=== PATIENT | male | born 1935 | race Caucasian/White ===

== ENCOUNTER → 2021-11-28 | Outpatient (CLI) | payer MEDICARE ==
--- NOTE | 2021-11-28 16:14 | Diagnostic Imaging Report ---
Indication: Loss of appetite, weight loss, cardiac pacemaker. Comparison: None Findings: Acute abdominal series demonstrates nonspecific nodule in the right upper lobe. CT is recommended. There is hyperinflation of both lungs suspicious for COPD. No infiltrate is identified. The heart and cardiac pacemaker unremarkable. There is no bowel obstruction, free air or constipation. Osseous structures are normal. Impression: Nonspecific nodule right upper lobe. CT chest recommended. Dictated by: Dictated on workstation # [id number]
== END ==
LOC: RAD FS 14:43
PROVIDERS: ATTEND Family Medicine
DX: R63.0 Anorexia (principal); R63.4 Abnormal weight loss; Z95.0 Presence of cardiac pacemaker
CPT/HCPCS: 74022

== ENCOUNTER → 2021-11-29 | Outpatient (CLI) | payer MEDICARE ==
[~2021-11-29] MED LIST: CATHETER FLUSH 10 ML SYR IV PRN; HOLD METFORMIN - RECEIVED CONTRAST 20 ML VIAL IV SCH; IOHEXOL 350 MG/ML 100 ML (OMNIPAQUE 350) VIAL IV ONE; NS 100 ML (IVPB) BAG IV ONE
--- NOTE | 2021-11-29 15:20 | Diagnostic Imaging Report ---
PROCEDURE: CT chest with contrast only. TECHNIQUE: Multiple contiguous axial images were obtained through the chest after administration of intravenous contrast. Auto Exposure Controls were utilized during the CT exam to meet ALARA standards for radiation dose reduction. DATE: November 29, 2021. COMPARISON: Acute abdominal radiographic series of November 28, 2021. INDICATION: 86-year-old male, right upper lobe pulmonary nodule. FINDINGS: There is a benign calcified right upper lobe granuloma measuring 5 mm in size on axial image 52. There is minimal pleural parenchymal scarring in the lung apices. There are upper lobe predominant findings of centrilobular emphysema. There is some respiratory motion artifact. There is no identified noncalcified pulmonary nodule or lung mass. There is no otherwise noted focal airspace consolidation. There is no pneumothorax. There is no pleural effusion. The central airways are patent. The heart is not enlarged. There is no pericardial effusion. There is no identified abnormally enlarged mediastinal, hilar, or axillary lymph node meeting CT size criteria for adenopathy. There is an exophytic low-attenuation right renal lesion on axial image 182 measuring up to 6.3 cm in size. Internal attenuation is most compatible with a benign cyst. There is also an additional low-attenuation smaller right renal lesion on axial image 202 consistent with a benign cyst. There are degenerative changes of the spine. There are multilevel flowing syndesmophytes without pronounced disc height loss which may reflect diffuse hepatic skeletal hyperostosis. There is no identified acute bony abnormality. There are degenerative changes of the cervical spine. IMPRESSION: CT CHEST. 1. Benign calcified 5 mm right upper lobe granuloma. No noncalcified pulmonary nodule or lung mass 2. Findings of emphysema. 3. No acute cardiopulmonary abnormality. Dictated by: Dictated on workstation # [id number]
== END ==
LOC: RAD FS 13:35
PROVIDERS: ATTEND Family Medicine
DX: J84.10 Pulmonary fibrosis, unspecified (principal); J43.9 Emphysema, unspecified; R91.1 Solitary pulmonary nodule
CPT/HCPCS: 71260

== ENCOUNTER 2022-01-06 20:28 | Inpatient (IN) | payer MEDICARE ==
[~2022-01-06] VITALS: Ht 182.9 cm; Wt 83.1 kg
--- NOTE | 2022-01-06 20:40 | ED GI ---
General Chief Complaint: Abdominal/GI Problems Stated Complaint: N/V Source of Information: Patient, EMS Exam Limitations: No Limitations History of Present Illness Date Seen by Provider: Jan 06, 2022 Time Seen by Provider: 20:37 Initial Comments To ER by EMS from [facility] with reports of nausea vomiting and intermittent abdominal pain. Was worried he is going to get dehydrated. Denies any diarrhea. EMS gave 4 mg of Zofran and 1 L of IV fluids in route to the hospital which resolved his symptoms upon arrival here. Timing/Duration: 1-2 Days Severity/Quality: Moderate Location: Generalized Abdomen Radiation: No Radiation Activities at Onset: None Associated Symptoms: Nausea/Vomiting Allergies and Home Medications Allergies Coded Allergies: No Known Drug Allergies (Unverified , 01/06/22) Patient Home Medication List Home Medication List Reviewed: Yes Review of Systems Review of Systems Constitutional: see HPI EENTM: No Symptoms Reported Respiratory: No Symptoms Reported Cardiovascular: No Symptoms Reported Gastrointestinal: See HPI, Abdominal Pain; Denies Diarrhea; Nausea, Vomiting Genitourinary: No Symptoms Reported Musculoskeletal: no symptoms reported Skin: no symptoms reported Psychiatric/Neurological: No Symptoms Reported Endocrine: No Symptoms Reported Hematologic/Lymphatic: No Symptoms Reported Physical Exam Vital Signs Vital Signs - First Documented 01/06/22 20:29 Temp 37.1 Pulse 96 Resp 18 B/P (MAP) 109/94 (99) Pulse Ox 97 O2 Delivery Room Air Capillary Refill : Height/Weight/BMI Height: '" Weight: lbs. oz. kg; BMI Method: General Appearance: WD/WN, no apparent distress, other (No distress at this time, hemodynamically stable abdomen is flat soft and nontender. Bowel sounds are present.) HEENT: PERRL/EOMI, normal ENT inspection Neck: non-tender, full range of motion Respiratory: no respiratory distress, no accessory muscle use Cardiovascular: regular rate, rhythm, no murmur Gastrointestinal: normal bowel sounds, non tender, soft Extremities: normal range of motion, non-tender Neurologic/Psychiatric: alert, normal mood/affect, oriented x 3 Skin: normal color, warm/dry Progress/Results/Core Measures Results/Orders Lab Results Laboratory Tests Test 01/06/22 20:40 01/06/22 21:36 Range/Units White Blood Count 17.8 H 4.3-11.0 10^3/uL Red Blood Count 5.24 4.30-5.52 10^6/uL Hemoglobin 16.7 13.3-17.7 g/dL Hematocrit 50 40-54 % Mean Corpuscular Volume 96 80-99 fL Mean Corpuscular Hemoglobin 32 25-34 pg Mean Corpuscular Hemoglobin Concent 33 32-36 g/dL Red Cell Distribution Width 13.8 10.0-14.5 % Platelet Count 231 130-400 10^3/uL Mean Platelet Volume 11.3 9.0-12.2 fL Immature Granulocyte % (Auto) 0 % Neutrophils (%) (Auto) 91 H 42-75 % Lymphocytes (%) (Auto) 3 L 12-44 % Monocytes (%) (Auto) 6 0-12 % Eosinophils (%) (Auto) 0 0-10 % Basophils (%) (Auto) 0 0-10 % Neutrophils # (Auto) 16.3 H 1.8-7.8 10^3/uL Lymphocytes # (Auto) 0.5 L 1.0-4.0 10^3/uL Monocytes # (Auto) 1.0 0.0-1.0 10^3/uL Eosinophils # (Auto) 0.0 0.0-0.3 10^3/uL Basophils # (Auto) 0.0 0.0-0.1 10^3/uL Immature Granulocyte # (Auto) 0.1 0.0-0.1 10^3/uL Neutrophils % (Manual) 91 % Lymphocytes % (Manual) 0 % Monocytes % (Manual) 1 % Eosinophils % (Manual) 0 % Basophils % (Manual) 0 % Band Neutrophils 7 % Reactive Lymphocytes 1 % Blood Morphology Comment NORMAL Sodium Level 141 135-145 MMOL/L Potassium Level 4.1 3.6-5.0 MMOL/L Chloride Level 102 98-107 MMOL/L Carbon Dioxide Level 22 21-32 MMOL/L Anion Gap 17 H 5-14 MMOL/L Blood Urea Nitrogen 41 H 7-18 MG/DL Creatinine 1.16 0.60-1.30 MG/DL Estimat Glomerular Filtration Rate 62 BUN/Creatinine Ratio 35 Glucose Level 170 H 70-105 MG/DL Calcium Level 10.3 H 8.5-10.1 MG/DL Corrected Calcium 9.9 8.5-10.1 MG/DL Total Bilirubin 1.9 H 0.1-1.0 MG/DL Aspartate Amino Transf (AST/SGOT) 22 5-34 U/L Alanine Aminotransferase (ALT/SGPT) 28 0-55 U/L Alkaline Phosphatase 80 40-136 U/L Total Protein 8.4 H 6.4-8.2 GM/DL Albumin 4.5 3.2-4.5 GM/DL Lipase 10 8-78 U/L Urine Color YELLOW Urine Clarity CLEAR Urine pH 5.5 5-9 Urine Specific [place] >=1.030 1.016-1.022 Urine Protein TRACE H NEGATIVE Urine Glucose (UA) NEGATIVE NEGATIVE Urine Ketones TRACE H NEGATIVE Urine Nitrite NEGATIVE NEGATIVE Urine Bilirubin NEGATIVE NEGATIVE Urine Urobilinogen 0.2 < = 1.0 MG/DL Urine Leukocyte Esterase NEGATIVE NEGATIVE Urine RBC (Auto) NEGATIVE NEGATIVE Urine RBC NONE /HPF Urine WBC RARE /HPF Urine Squamous Epithelial Cells NONE /HPF Urine Crystals NONE /LPF Urine Bacteria TRACE /HPF Urine Casts PRESENT /LPF Urine Hyaline Casts 5-10 H /LPF Urine Mucus SMALL H /LPF Urine Culture Indicated NO My Orders Orders - NELSON LAFLEUR APRN Cbc With Automated Diff (01/06/22 20:35) Lipase (01/06/22 20:35) Ua Culture If Indicated (01/06/22 20:35) Comprehensive Metabolic Panel (01/06/22 20:35) Ct Abdomen/Pelvis Wo (01/06/22 20:35) Manual Differential (01/06/22 20:40) Benzocaine Extension Tube (Hurricaine Ex (01/06/22 21:30) Chest 1 View, Ap/Pa Only (01/06/22 21:17) Benzocaine Extension Tube (Hurricaine Ex (01/06/22 21:18) Promethazine Injection (Phenergan Injec (01/06/22 21:45) Fentanyl Inj (Sublimaze Injection) (01/06/22 21:45) Ng Tube Insert & Assessment (01/06/22 21:50) Chest 1 View, Ap/Pa Only (01/06/22 21:50) Piperacillin Sodium/Tazobactam (Zosyn Vi (01/06/22 22:00) Ed Admission (Communication) (01/06/22 21:52) Medications Given in ED Current Medications Medications Dose Ordered Sig/Storm Route Start Time Stop Time Status Last Admin Dose Admin Benzocaine 1 ea ONCE ONCE XX 01/06/22 21:30 01/06/22 21:31 DC 01/06/22 21:30 1 EA Fentanyl Citrate 25 mcg ONCE PRN IVP 01/06/22 21:45 01/06/22 21:41 25 MCG Promethazine HCl 12.5 mg ONCE ONCE IVP 01/06/22 21:45 01/06/22 21:46 DC 01/06/22 21:42 12.5 MG Vital Signs/I&O 01/06/22 01/06/22 20:29 20:29 Temp 37.1 Pulse 96 Resp 18 B/P (MAP) 109/94 (99) Pulse Ox 97 O2 Delivery Room Air Room Air Departure Communication (Admissions) NAME: PA MUNOZ [facility] REC#: [id number] PT STATUS: REG ER : 1935 PHYSICIAN: NELSON LAFLEUR APRN ADMIT DATE: 01/06/22/ER Draft Date of Exam:01/06/22 CHEST 1 VIEW, AP/PA ONLY INDICATION: Nasogastric tube assessment. EXAMINATION: AP view of the chest was obtained. FINDINGS: Lungs appear clear apart from mild left basilar atelectasis. Nasogastric tube is in place and appears to be bent upon itself in the lower esophagus. There is no pneumothorax. A small calcified granuloma is seen in the lateral right upper lobe. IMPRESSION: 1. Nasogastric tube is bent upon itself in the lower esophagus. 2. There is mild left basilar atelectasis without evidence of pneumothorax or other acute abnormality in the chest. Dictated on workstation # [id number] Dict: 01/06/222141 Trans: 01/06/222145 [facility] [id number] Interpreted by: LAURITA MELARA MD Electronically signed by: NAME: PA MUNOZ [facility] REC#: [id number] PT STATUS: REG ER : 1935 PHYSICIAN: NELSON LAFLEUR APRN ADMIT DATE: 01/06/22/ER Draft Date of Exam:01/06/22 CHEST 1 VIEW, AP/PA ONLY INDICATION: Nasogastric tube assessment. EXAMINATION: AP view of the chest was obtained. FINDINGS: Lungs appear clear apart from mild left basilar atelectasis. Nasogastric tube is in place and appears to be bent upon itself in the lower esophagus. There is no pneumothorax. A small calcified granuloma is seen in the lateral right upper lobe. IMPRESSION: 1. Nasogastric tube is bent upon itself in the lower esophagus. 2. There is mild left basilar atelectasis without evidence of pneumothorax or other acute abnormality in the chest. Dictated on workstation # [id number] Dict: 01/06/222141 Trans: 01/06/222145 [facility] [id number] Interpreted by: LAURITA MELARA MD Electronically signed by: Impression Primary Impression: SBO (small bowel obstruction) Disposition: ADMITTED INPATIENT Condition: Stable Admissions Decision to Admit Reason: Admit from ER (General) Decision to Admit/Date: Jan 06, 2022 Time/Decision to Admit Time: 21:14 Departure-Patient Inst. Referrals: JOSE DAVENPORT MD (PCP/Family) Primary Care Physician NELSON LAFLEUR APRN Jan 06, 2022 20:40
[2022-01-06 20:46] LABS: BASOPHILS % (AUTO) 0 % (0-10); EOSINOPHILS % (AUTO) 0 % (0-10); HEMATOCRIT 50 % (40-54); HEMOGLOBIN 16.7 g/dL (13.3-17.7); LYMPHOCYTES # (AUTO) 0.5 10^3/uL (1.0-4.0); LYMPHOCYTES % (AUTO) 3 % (12-44); MEAN CORPUSCULAR HEMOGLOBIN 32 pg (25-34); MEAN CORPUSCULAR HGB CONC 33 g/dL (32-36); MEAN CORPUSCULAR VOLUME 96 fL (80-99); MEAN PLATELET VOLUME 11.3 fL (9.0-12.2); MONOCYTES % (AUTO) 6 % (0-12); NEUTROPHILS # (AUTO) 16.3 10^3/uL (1.8-7.8); NEUTROPHILS % (AUTO) 91 % (42-75); PLATELET COUNT 231 10^3/uL (130-400); WHITE BLOOD COUNT 17.8 10^3/uL (4.3-11.0)
[2022-01-06 21:01] LABS: BAND NEUTROPHILS 7 %; BASOPHILS % (MANUAL) 0 %; EOSINOPHILS % (MANUAL) 0 %; LYMPHOCYTES % (MANUAL) 0 %; MONOCYTES % (MANUAL) 1 %; NEUTROPHILS % (MANUAL) 91 %; RBC MORPH NORMAL; REACTIVE LYMPHOCYTES 1 %
[2022-01-06 21:03] LABS: ALBUMIN 4.5 GM/DL (3.2-4.5); POTASSIUM 4.1 MMOL/L (3.6-5.0)
[2022-01-06 21:04] LABS: CALCIUM 10.3 MG/DL (8.5-10.1)
[2022-01-06 21:05] LABS: TOTAL PROTEIN 8.4 GM/DL (6.4-8.2)
[2022-01-06 21:07] LABS: BILIRUBIN,TOTAL 1.9 MG/DL (0.1-1.0)
[2022-01-06 21:09] LABS: CREATININE SERUM 1.16 MG/DL (0.60-1.30)
[2022-01-06] MEDS ORDERED: HURRICAINE EXT TUBE (BENZOCAINE) ONE (21:18)
--- NOTE | 2022-01-06 21:27 | Diagnostic Imaging Report ---
PROCEDURE: CT abdomen and pelvis without contrast. TECHNIQUE: Multiple contiguous axial images were obtained through the abdomen and pelvis without the use of intravenous contrast. Auto Exposure Controls were utilized during the CT exam to meet ALARA standards for radiation dose reduction. INDICATION: Nausea, emesis and abdominal pain. FINDINGS: There is extensive distention of the distal esophagus, stomach and duodenum with fluid. There is moderate dilatation throughout the jejunum as well. The ileum is decompressed. There is mild amount of stool throughout the colon. Unenhanced images of liver, gallbladder, pancreas, adrenal glands and spleen are unremarkable. There is a dominant cyst arising from the right kidney. Otherwise kidneys are unremarkable. There is no free fluid or focal inflammation. Unopacified bladder is unremarkable. There is diffuse lumbar spondylosis with anterior compression fracture deformity at L4 which is likely chronic in nature. IMPRESSION: 1. Dilatation of alimentary tract from the visualized distal esophagus through the jejunum. There does appear to be transition point which may be related to at least partial obstruction near the jejunoileal junction. Clinical correlation is recommended. Possibility of adhesions as etiology cannot be excluded. 2. Otherwise, no definite acute abnormality or significant change is identified. Dictated by: Dictated on workstation # [id number]
[2022-01-06] MEDS ORDERED: HURRICAINE EXT TUBE (BENZOCAINE) XX ONE (21:30)
[2022-01-06 21:39] LABS: BILIRUBIN,URINE NEGATIVE (NEGATIVE); CLARITY,URINE CLEAR; COLOR,URINE YELLOW; GLUCOSE, URINE (UA) NEGATIVE (NEGATIVE); KETONES,URINE TRACE (NEGATIVE); LEUKOCYTE ESTERASE ,URINE NEGATIVE (NEGATIVE); NITRITE,URINE NEGATIVE (NEGATIVE); PH,URINE 5.5 (5-9); PROTEIN,URINE TRACE (NEGATIVE)
[2022-01-06] MEDS ORDERED: fentaNYL INJ 100 MCG/2 ML AMP IVP PRN (21:45)
[2022-01-06] MEDS ORDERED: PROMETHAZINE INJ 25 MG/ML (PHENERGAN) AMP IVP ONE (21:45)
--- NOTE | 2022-01-06 21:47 | Diagnostic Imaging Report ---
INDICATION: Nasogastric tube assessment. EXAMINATION: AP view of the chest was obtained. FINDINGS: Lungs appear clear apart from mild left basilar atelectasis. Nasogastric tube is in place and appears to be bent upon itself in the lower esophagus. There is no pneumothorax. A small calcified granuloma is seen in the lateral right upper lobe. IMPRESSION: 1. Nasogastric tube is bent upon itself in the lower esophagus. 2. There is mild left basilar atelectasis without evidence of pneumothorax or other acute abnormality in the chest. Dictated by: Dictated on workstation # [id number]
[2022-01-06 21:51] LABS: BACTERIA,URINE TRACE /HPF; WBC,URINE RARE /HPF
[2022-01-06] MEDS ORDERED: PIPERACILLIN SODIUM/TAZOBACTAM 4.5 GM in NS (IVPB) 100 ML IV ONE (22:00)
--- NOTE | 2022-01-06 22:09 | Diagnostic Imaging Report ---
INDICATION: Nasogastric tube assessment. EXAMINATION: Portable AP upright view of the chest was obtained. COMPARISON: Study of earlier in the day. FINDINGS: Heart size and pulmonary vascularity are within normal limits. There is air trapping, bilaterally. Nasogastric tube passes below the diaphragm. There is no pneumothorax or other complication. IMPRESSION: Nasogastric tube now passes below the diaphragm. Dictated by: Dictated on workstation # [id number]
[2022-01-06] MEDS ORDERED: LORazepam INJ 2 MG/ML (ATIVAN) VIAL IVP PRN (23:30)
[2022-01-06] MEDS ORDERED: diphenhydrAMINE 50 MG/ML INJ (BENADRYL) IVP PRN (23:30)
[2022-01-06] MEDS ORDERED: ONDANSETRON 4 MG/2 ML (SDV) Z0FRAN IV PRN (23:30)
[2022-01-06] MEDS ORDERED: ACETAMINOPHEN 650 MG SUPP (TYLENOL) PR PRN (23:30)
[2022-01-06] MEDS ORDERED: PATIENT MAY USE OWN MEDS, ALL PO SCH (23:30)
[2022-01-06 23:37] VITALS: BP 109/96
[2022-01-06 23:58] VITALS: BP 154/82
[2022-01-07] MEDS ORDERED: RT-ALBUTEROL SULF 2.5 MG/3 ML PRE-MIX VIAL INH PRN
[2022-01-07] MEDS: ENOXAPARIN 40 MG/0.4 ML (LOVENOX) SYR SC SCH ×2 (00:37→20:40)
[2022-01-07] MEDS: NS IV 1000 ML 1,000 ML IV SCH ×3 (00:37→22:42)
[2022-01-07] MEDS: morphine INJ 4 MG/ML 1 ML (VIAL/SYRINGE) IV PRN (02:33)
[2022-01-07] MEDS: PIPERACILLIN SODIUM/TAZOBACTAM 4.5 GM in NS (IVPB) 100 ML IV SCH ×3 (02:33→17:04)
[2022-01-07 03:43] VITALS: BP 152/82
--- NOTE | 2022-01-07 05:56 | History & Physical-Hospitalist ---
History of Present Illness HPI/Chief Complaint Chief complaint: Small bowel obstruction History of present illness: This is an 86-year-old white male who has a past m edical history of hypertension and pacemaker and a previous bowel obstruction who presented to the ER with abdominal pain. Bowel obstruction was diagnosed and NG tube was placed and Dr. Gold was consulted. Patient is currently doing well with decreased abdominal pain. He did well with therapy. Conservative management will continue. Source: patient Exam Limitations: no limitations Date Seen 01/07/22 Time Seen by a Provider: 11:00 Attending Physician Karen Chavez DO PCP Self,Yg BEAULIEU Referring Physician Date of Admission Jan 06, 2022 at 21:54 Home Medications & Allergies Home Medications Reviewed patient Home Medication Reconciliation performed by pharmacy medication reconciliations retail service technician and/or nursing. Patients Allergies have been reviewed. Allergies Allergies Coded Allergies No Known Drug Allergies (Unverified01/06/22) Past Pgotccq-Mcuukz-Neuxqt Hx Patient Social History Marrital Status: single Employed/Student: retired Tobacco Use?: No Smoking Status: Former Smoker Substance use?: No Alcohol Use?: No Current Status Communicates: Verbally Primary Language: Z[place]ian Preferred Spoken Language: [place]ian Sensory deficits: Hearing impairment Implanted or Applied Medical D: Pacemaker Past Medical History COPD High Cholesterol, Hypertension Obstructive Bowel Review of Systems Constitutional: see HPI, malaise, weakness EENTM: no symptoms reported Respiratory: no symptoms reported Cardiovascular: no symptoms reported Gastrointestinal: abdominal pain, loss of appetite, nausea, vomiting Genitourinary: no symptoms reported Musculoskeletal: no symptoms reported Skin: no symptoms reported Psychiatric/Neurological: No Symptoms Reported All Other Systems Reviewed Negative Unless Noted: Yes Physical Exam Physical Exam Vital Signs Vital Signs - First Documented 01/06/22 20:29 Temp 37.1 Pulse 96 Resp 18 B/P (MAP) 109/94 (99) Pulse Ox 97 O2 Delivery Room Air Capillary Refill : Less Than 3 Seconds Height, Weight, BMI Height: '" Weight: lbs. oz. kg; 25.11 BMI Method: General Appearance: No Apparent Distress, Chronically ill, Thin Eyes: Right Eye Normal Inspection, Right Eye PERRL HEENT: PERRL/EOMI, Normal ENT Inspection, Pharynx Normal, Moist Mucous Membranes Neck: Full Range of Motion, Normal Inspection, Non Tender Respiratory: Chest Non Tender, Lungs Clear, Normal Breath Sounds, No Accessory Muscle Use, No Respiratory Distress Cardiovascular: Regular Rate, Rhythm, No Edema, No Gallop, No JVD, No Murmur, Normal Peripheral Pulses Gastrointestinal: No Organomegaly, No Pulsatile Mass, Abnormal Bowel Sounds, Distended, Tenderness Back: Normal Inspection, No CVA Tenderness, No Vertebral Tenderness Extremity: Normal Capillary Refill, Normal Inspection, Normal Range of Motion, Non Tender, No Calf Tenderness, No Pedal Edema Neurologic/Psychiatric: Alert, Oriented x3, No Motor/Sensory Deficits, Normal Mood/Affect Skin: Normal Color, Warm/Dry Lymphatic: No Adenopathy Results Results/Procedures Labs Laboratory Tests 01/06/22 20:40 01/07/22 05:50 Patient resulted labs reviewed. Assessment/Plan Admission Diagnosis Assessment: Small bowel obstruction NG tube in place Hypertension Hyperlipidemia Pacemaker Plan: Supportive care NG tube Dr. Gold appreciated Admission Status: Inpatient Order (span 2 midnights) Reason for Inpatient Admission: Bowel obstruction Diagnosis/Problems Diagnosis/Problems (1) SBO (small bowel obstruction) Status: Acute KAREN CHAVEZ DO Jan 07, 2022 05:56
[2022-01-07 06:13] LABS: BASOPHILS % (AUTO) 0 % (0-10); EOSINOPHILS % (AUTO) 0 % (0-10); HEMATOCRIT 45 % (40-54); HEMOGLOBIN 14.7 g/dL (13.3-17.7); LYMPHOCYTES # (AUTO) 0.9 10^3/uL (1.0-4.0); LYMPHOCYTES % (AUTO) 7 % (12-44); MEAN CORPUSCULAR HEMOGLOBIN 31 pg (25-34); MEAN CORPUSCULAR HGB CONC 33 g/dL (32-36); MEAN CORPUSCULAR VOLUME 97 fL (80-99); MEAN PLATELET VOLUME 11.5 fL (9.0-12.2); MONOCYTES # (AUTO) 1.4 10^3/uL (0.0-1.0); MONOCYTES % (AUTO) 11 % (0-12); NEUTROPHILS # (AUTO) 9.9 10^3/uL (1.8-7.8); NEUTROPHILS % (AUTO) 81 % (42-75); PLATELET COUNT 196 10^3/uL (130-400); WHITE BLOOD COUNT 12.2 10^3/uL (4.3-11.0)
[2022-01-07 06:20] LABS: ALBUMIN 3.8 GM/DL (3.2-4.5); POTASSIUM 3.7 MMOL/L (3.6-5.0)
[2022-01-07 06:21] LABS: CALCIUM 9.5 MG/DL (8.5-10.1)
[2022-01-07 06:22] LABS: TOTAL PROTEIN 7.1 GM/DL (6.4-8.2)
[2022-01-07 06:24] LABS: BILIRUBIN,TOTAL 2.1 MG/DL (0.1-1.0)
[2022-01-07 06:26] LABS: CREATININE SERUM 1.15 MG/DL (0.60-1.30)
[2022-01-07 07:20] VITALS: BP_SYST 145; BP_SYST 152; BP_DIAS 76; BP_DIAS 82
--- NOTE | 2022-01-07 08:43 | Consultation - Surgery ---
KELSEA COHEN 01/07/22 0843: History of Present Illness History of Present Illness Patient Consulted On(jazmyne/time) 01/07/22 08:39 Date Seen by Provider: Jan 07, 2022 Time Seen by Provider: 08:00 Reason for Visit: Abdominal pain, vomiting History of Present Illness Consult requested by Dr. Chavez for partial small bowel obstruction. Pt is 86 yo male with HTN, hypercholesterolemia, a pacemaker, hearing difficulties, and hx of a previous "stomach blockage." He came to the ER via EMS with 2-3 days of ab dominal pain and vomiting. He said the pain originally felt like heartburn along his esophagus, but moved into his LLQ and RLQ. The pain was 8/10 and did not radiate. He did not try anything to make it better. He felt very weak and was worried about dehydration, as he had also been vomiting. The emesis was a brownish fluid, with no visible blood. His pain improved after emesis. He has not had a bowel movement in 3 days, but he has been passing gas. His last was solid with no blood visible. The pt has not eaten in 3 days and is currently NPO. His pain is 4/10 now. The pt is ambulating with physical therapy right now. He does not remember what surgery he had for his previous "stomach blockage," but said it was in the 1970s in [place], [place]. He says this feels similar to the sx he was having then. He denies CP, SOB, palpitations, and fever at this time. He denies having GERD and states he has never had an EGD. His last colonoscopy was 8-9 years ago in [place]. He does not know why he has a pacemaker, but says they put it in after he "passed out." He denies having a heart attack. Allergies and Home Medications Allergies Coded Allergies: No Known Drug Allergies (Unverified , 01/06/22) Patient Home Medication List Amlodipine Besylate (Norvasc) 10 Mg Tablet, 10 MG PO HS Prescribed by: MIGUELITO MCCRAY on 01/07/22 5788 Last Action: Last Taken Edited Atorvastatin Calcium (Lipitor) 10 Mg Tablet, 10 MG PO HS Prescribed by: MIGUELITO MCCRAY on 01/07/22 1245 Last Action: Last Taken Edited Multivitamin (Multivitamin) 1 Each Tablet, 1 EACH PO HS Prescribed by: MIGUELITO MCCRAY on 01/07/22 5973 Last Action: Last Taken Edited Past Pnhmycj-Lcczxz-Efugsi Hx Patient Social History Smoking Status: Former Smoker Alcohol Use?: No Surgeries Surgeries: Appendectomy, Eye Surgery (cataract removal), Pacemaker Respiratory History of Respiratory Disorde: No Cardiovascular Cardiac Disorders: High Cholesterol, Hypertension HEENT Hearing Impairment: Hard of Hearing Family Medical History Significant Family History: COPD (father, was a smoker), Other Conditions/Hx (brother has dementia) Review of Systems-General Constitutional: No chills, No dizziness, No fever; weakness EENTM: hearing loss; No vision loss Respiratory: No cough, No short of breath Cardiovascular: No chest pain, No palpitations Gastrointestinal: abdominal pain; No heartburn; nausea, vomiting Genitourinary: No dysuria; frequency Musculoskeletal: No back pain; muscle weakness Skin: No lesions, No rash Psychiatric/Neurological: Denies Headache; Weakness (daughter reports he is very unstable on his feet, unsure cause) Physical Exam-General Problems Physical Exam Vital Signs Vital Signs - First Documented 01/06/22 20:29 Temp 37.1 Pulse 96 Resp 18 B/P (MAP) 109/94 (99) Pulse Ox 97 O2 Delivery Room Air Capillary Refill : Less Than 3 Seconds General Appearance: WD/WN, no apparent distress Neck: supple, normal inspection Respiratory: lungs clear, normal breath sounds, no respiratory distress Cardiovascular: regular rate, rhythm, no murmur, other (pacemaker) Peripheral Pulses: 2+ Radial Pulses (R), 2+ Radial Pulses (L) Gastrointestinal: soft, tenderness (epigastric and LLQ) Extremities: normal inspection, no pedal edema Neurologic/Psychiatric: alert, normal mood/affect, oriented x 3 Skin: normal color, warm/dry Data Review Labs Laboratory Tests 01/06/22 20:40: White Blood Count 17.8H, Red Blood Count 5.24, Hemoglobin 16.7, Hematocrit 50, Mean Corpuscular Volume 96, Mean Corpuscular Hemoglobin 32, Mean Corpuscular Hemoglobin Concent 33, Red Cell Distribution Width 13.8, Platelet Count 231, Mean Platelet Volume 11.3, Immature Granulocyte % (Auto) 0, Neutrophils (%) (Auto) 91H, Lymphocytes (%) (Auto) 3L, Monocytes (%) (Auto) 6, Eosinophils (%) (Auto) 0, Basophils (%) (Auto) 0, Neutrophils # (Auto) 16.3H, Lymphocytes # (Auto) 0.5L, Monocytes # (Auto) 1.0, Eosinophils # (Auto) 0.0, Basophils # (Auto) 0.0, Immature Granulocyte # (Auto) 0.1, Neutrophils % (Manual) 91, Lymphocytes % (Manual) 0, Monocytes % (Manual) 1, Eosinophils % (Manual) 0, Basophils % (Manual) 0, Band Neutrophils 7, Reactive Lymphocytes 1, Blood Morphology Comment NORMAL, Sodium Level 141, Potassium Level 4.1, Chloride Level 102, Carbon Dioxide Level 22, Anion Gap 17H, Blood Urea Nitrogen 41H, Creatinine 1.16, Estimat Glomerular Filtration Rate 62, BUN/Creatinine Ratio 35, Glucose Level 170H, Calcium Level 10.3H, Corrected Calcium 9.9, Total Bilirubin 1.9H, Aspartate Amino Transf (AST/SGOT) 22, Alanine Aminotransferase (ALT/SGPT) 28, Alkaline Phosphatase 80, Total Protein 8.4H, Albumin 4.5, Lipase 10 01/06/22 21:36: Urine Color YELLOW, Urine Clarity CLEAR, Urine pH 5.5, Urine Specific [place] >=1.030, Urine Protein TRACEH, Urine Glucose (UA) NEGATIVE, Urine Ketones TRACEH , Urine Nitrite NEGATIVE, Urine Bilirubin NEGATIVE, Urine Urobilinogen 0.2, Urine Leukocyte Esterase NEGATIVE, Urine RBC (Auto) NEGATIVE, Urine RBC NONE, Urine WBC RARE, Urine Squamous Epithelial Cells NONE, Urine Crystals NONE, Urine Bacteria TRACE, Urine Casts PRESENT, Urine Hyaline Casts 5-10H, Urine Mucus SMALLH, Urine Culture Indicated NO 01/07/22 05:50: White Blood Count 12.2H, Red Blood Count 4.69, Hemoglobin 14.7, Hematocrit 45, Mean Corpuscular Volume 97, Mean Corpuscular Hemoglobin 31, Mean Corpuscular Hemoglobin Concent 33, Red Cell Distribution Width 14.0, Platelet Count 196, Mean Platelet Volume 11.5, Immature Granulocyte % (Auto) 0, Neutrophils (%) (Auto) 81H, Lymphocytes (%) (Auto) 7L, Monocytes (%) (Auto) 11, Eosinophils (%) (Auto) 0, Basophils (%) (Auto) 0, Neutrophils # (Auto) 9.9H, Lymphocytes # (Auto) 0.9L, Monocytes # (Auto) 1.4H, Eosinophils # (Auto) 0.0, Basophils # ( Auto) 0.0, Immature Granulocyte # (Auto) 0.0, Sodium Level 143, Potassium Level 3.7, Chloride Level 103, Carbon Dioxide Level 26, Anion Gap 14, Blood Urea Nitrogen 43H, Creatinine 1.15, Estimat Glomerular Filtration Rate 63, BUN/Creati nine Ratio 37, Glucose Level 142H, Calcium Level 9.5, Corrected Calcium 9.7, Total Bilirubin 2.1H, Aspartate Amino Transf (AST/SGOT) 18, Alanine Aminotransferase (ALT/SGPT) 21, Alkaline Phosphatase 64, Total Protein 7.1, Albumin 3.8 Assessment/Plan Assessment/Plan Assessment/Plan Abdominal Pain- partial small bowel obstruction N/V HTN NG tube 300mL drainage dark brown fluid CxR- NG tube below diaphragm, Mild L basilar atelectasis; previous CxR showed the NG tube bent Abd/pelvic CT- distal esophagus to jejunum was dilated with fluid; partial obst ruction at jejunoileal jxn NPO Continue Piper/Tazo Ondansetron as needed NG tube in place Pain management Monitor labs and vitals Conservative surgical management at this time CECE PRICE DO 01/07/22 1337: History of Present Illness History of Present Illness Time Seen by Provider: 11:00 History of Present Illness Surgery asked to consult regarding possible small bowel obstruction. HPI per ED: To ER by EMS from [facility] with reports of nausea vomiting and intermittent abdominal pain. Was worried he is going to get dehydrated. Denies any diarrhea. EMS gave 4 mg of Zofran and 1 L of IV fluids in route to the hospital which resolved his symptoms upon arrival here. When I spoke to pt he stated he still had some abdominal pain, but it is slightly better than when he came in. He thinks he may still be a little bloated. He does have flatus, but no BM for 3 days (which is abnormal for him). Vomited at home, but nothing since being admitted. He states he has a hx of bowel obstruction and had surgery for it around 50 yrs ago. Pain is dull and diffuse. Allergies and Home Medications Allergies Coded Allergies: No Known Drug Allergies (Unverified , 01/06/22) Patient Home Medication List Home Medication List Reviewed: Yes Amlodipine Besylate (Norvasc) 10 Mg Tablet, 10 MG PO HS Prescribed by: MIGUELITO MCCRAY on 01/07/221242 Last Action: Last Taken Edited Atorvastatin Calcium (Lipitor) 10 Mg Tablet, 10 MG PO HS Prescribed by: MIGUELITO MCCRAY on 01/07/221242 Last Action: Last Taken Edited Multivitamin (Multivitamin) 1 Each Tablet, 1 EACH PO HS Prescribed by: MIGUELITO MCCRAY on 01/07/221242 Last Action: Last Taken Edited Past Juefari-Yrbolj-Lmveps Hx Patient Social History Smoking Status: Former Smoker Alcohol Use?: No Surgeries History of Surgeries: Yes Surgeries: Appendectomy, Bowel Surgery, Eye Surgery (cataract removal), Pacemaker Respiratory History of Respiratory Disorde: No Cardiovascular History of Cardiac Disorders: Yes Cardiac Disorders: High Cholesterol, Hypertension Neurological History of Neurological Disord: No Genitourinary History of Genitourinary Disor: Yes Genitourinary Disorders: Benign Prostatic Hyperpl Gastrointestinal History of Gastrointestinal Di: Yes Gastrointestinal Disorders: Obstructive Bowel Musculoskeletal History of Musculoskeletal Dis: Yes Musculoskeletal Disorders: Arthritis Endocrine History of Endocrine Disorders: No HEENT Loss of Vision: Bilateral (normal decrease with age) Hearing Impairment: Hard of Hearing Reviewed Nursing Assessment Reviewed/Agree w Nursing PMH: Yes Family Medical History Significant Family History: COPD (father, was a smoker), Other Conditions/Hx (brother has dementia) Review of Systems-General Constitutional: No chills, No dizziness, No fever; weakness EENTM: hearing loss; No vision loss, No epistaxis, No throat swelling Respiratory: No cough, No short of breath Cardiovascular: No chest pain, No palpitations Gastrointestinal: abdominal pain; No dysphagia, No heartburn; nausea, vomiting Genitourinary: No dysuria; frequency Musculoskeletal: No back pain; joint pain, muscle weakness Skin: No change in color, No lesions, No rash Psychiatric/Neurological: Denies Anxiety, Denies Depressed, Denies Headache; Weakness (daughter reports he is very unstable on his feet, unsure cause) Physical Exam-General Problems Physical Exam General Appearance: WD/WN, no apparent distress Eyes: Bilateral Eye PERRL, Bilateral Eye EOMI HEENT: pharynx normal; No scleral icterus (R), No scleral icterus (L) Neck: non-tender, supple Respiratory: lungs clear, normal breath sounds, no respiratory distress Cardiovascular: regular rate, rhythm, no murmur, other (pacemaker) Gastrointestinal: soft, no organomegaly, tenderness (epigastric and LLQ), hernia (umbilical) Rectal: deferred Extremities: normal inspection, no pedal edema 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 TECHNIQUE: Multiple contiguous axial images were obtained through the abdomen and pelvis without the use of intravenous contrast. Auto Exposure Controls were utilized during the CT exam to meet ALARA standards for radiation dose reduction. INDICATION: Nausea, emesis and abdominal pain. FINDINGS: There is extensive distention of the distal esophagus, stomach and duodenum with fluid. There is moderate dilatation throughout the jejunum as well. The ileum is decompressed. There is mild amount of stool throughout the colon. Unenhanced images of liver, gallbladder, pancreas, adrenal glands and spleen are unremarkable. There is a dominant cyst arising from the right kidney. Otherwise kidneys are unremarkable. There is no free fluid or focal inflammation. Unopacified bladder is unremarkable. There is diffuse lumbar spondylosis with anterior compression fracture deformity at L4 which is likely chronic in nature. IMPRESSION: 1. Dilatation of alimentary tract from the visualized distal esophagus through the jejunum. There does appear to be transition point which may be related to at least partial obstruction near the jejunoileal junction. Clinical correlation is recommended. Possibility of adhesions as etiology cannot be excluded. 2. Otherwise, no definite acute abnormality or significant change is identified. Dictated by: Dictated on workstation # [id number] Dict: 01/06/222117 Trans: 01/06/222153 [facility] [id number] Interpreted by: LAURITA MELARA MD Electronically signed by: LAURITA MELARA MD 01/06/222153 Assessment/Plan Assessment/Plan Assessment/Plan Abdominal Pain- possible small bowel obstruction vs ileus due to enteritis N/V HTN NG tube 300mL drainage dark brown fluid, continue LIWS CxR- Mild L basilar atelectasis Abd/pelvic CT- distal esophagus to jejunum was dilated with fluid; partial obstruction at jejunoileal jxn NPO, IV fluids, Continue Piper/Tazo, Ondansetron as needed, Pain management, Monitor labs and vitals Conservative surgical management at this time, if not improving may need SBFT Supervisory-Addendum Brief Verification & Attestation Participated in pt care: history, MDM, physical Personally performed: exam, history, MDM, supervision of care Care discussed with: Medical Student Procedures: n/a Verification and Attestation of Medical Student E/M Service A medical student performed and documented this service. I then reviewed and verified all information documented by the medical student and made modifications to such information, when appropriate. I personally performed a physical exam, medical decision making and then discussed any differences between the notes and made revisions as necessary to create one note. Cece Price , 01/07/22 , 13:41 KELSEA COHEN Jan 07, 2022 08:43 CECE PRICE DO Jan 07, 2022 13:37
--- NOTE | 2022-01-07 09:52 | Physical Therapy Evaluation ---
PT Evaluation-General Medical Diagnosis Admission Date Jan 06, 2022 at 21:54 Medical Diagnosis: Nausea, vomiting, abdominal pain Onset Date: Jan 07, 2022 Therapy Diagnosis Therapy Diagnosis: Gait deficit, strength deficit Precautions Precautions/Isolations: Fall Prevention, Standard Precautions Referral Physician: Dr. Chavez Reason for Referral: Evaluation/Treatment Social History Home: Apartment Current Living Status: Alone Entry Into Home: Level Entry PT Steps Into Home: 0 Prior Prior Level of Function SCALE: Activities may be completed with or without assistive devices. 7-Lxztpvpobl-hrlfbiq completes the activity by him/herself with no assistance from a helper. 5-Set-up or Clean-up Assistance-helper sets up or cleans up; patient completes activity. [place] assists only prior to or following the activity. 4-Supervision or Touching Assistance-helper provides verbal cues and/or touching/steadying and/or contact guard assistance as patient completes activity. Assistance may be provided throughout the activity or intermittently. 3-Partial/Moderate Assistance-helper does LESS THAN HALF the effort. [place] lifts, holds or supports trunk or limbs, but provides less than half the effort. 2-Substantial/Maximal Assistance-helper does MORE THAN HALF the effort. [place] lifts or holds trunk or limbs and provides more than half the effort. 7-Zxyrcphtm-qbndhh does ALL the effort. Patient does none of the effort to complete the activity. Or, the assistance of 2 or more helpers is required for the patient to complete the activity. If activity was not attempted, code reason: 7-Patient Refused. 9-Not Applicable-not attempted and the patient did not perform the activity before the current illness, exacerbation or injury. 10-Not Attempted due to Environmental Limitations-(lack of equipment, weather restraints, etc.). 88-Not Attempted due to Medical Conditions or Safety Concerns. Bed Mobility: 6 Transfers (B,C,W/C): 6 Gait: 6 Stairs: 6 Indoor Mobility (Ambulation): Independent Stairs: Independent Prior Devices Use: None PT Evaluation-Current Subjective Patient lying supine in bed upon PT arrival, agreeable to treatment. Patient rates pain at 4/10 in abdomen. Objective Patient Orientation: Person, Place, Time, Situation Attachments: NG Tube, IV ROM/Strength ROM Lower Extremities WFLs Strength Lower Extremities 5/5 bilaterally all planes Sensory Vision: Functional Hearing: Impaired Sensation Right Lower Extremit: Intact Sensation Left Lower Extremity: Intact Transfers Roll Left to Right (QC): 4 (SBA) Sit to Lying (QC): 4 (SBA) Lying to Sitting/Side of Bed(Q: 4 (SBA) Sit to Stand (QC): 4 (SBA) Chair/Dmp-mh-Emqjw Xfer(QC): 4 (CGA) Gait Does the Patient Walk?: Yes Mode of Locomotion: Walk Anticipated Mode of Locomotion: Walk Walk 10 feet (QC): 4 Walk 50 ft with 2 Turns(QC): 4 Distance: 100 Gait Assistive Device: None Balance Sitting Static: Normal Sitting Dynamic: Normal Standing Static: Fair Standing Dynamic: Fair Assessment/Needs Patient tolerated treatment well. Demonstrates SBA for all bed mobility and CGA for bed to chair. He ambulates 100 feet with IV pole for support, CGA and verbal cues for safety, progression, posture and MAHAMED. Patient tends to keep his feet too far apart during gait, which decreases his balance, shortens his stride length and increases fall risk. Patient educated in this however does not seem to understand or correct. Patient in chair post treatment with all needs met, nursing notified, call light in reach. Rehab Potential: Good PT Sales Agent Business Services Goals Senior Living Goals PT Senior Living Goals Time Frame: Jan 21, 2022 Roll Left & Right (QC): 6 Sit to Lying (QC): 6 Lying-Sitting on Side/Bed(QC): 6 Sit to Stand (QC): 6 Chair/Ezg-rs-Ebhuc Xfer(QC): 6 Toilet Transfer (QC): 5 Does the Patient Walk: Yes Walk 10 feet (QC): 5 Walk 50ft with 2 Turns (QC): 5 Walk 150 ft (QC): 5 PT Plan Problem List Problem List: Activity Tolerance, Functional Strength, Safety, Balance, Gait, Transfer, Bed Mobility, ROM Treatment/Plan Treatment Plan: Continue Plan of Care Treatment Plan: Bed Mobility, Education, Functional Activity Ericka, Functional Strength, Gait, Safety, Therapeutic Exercise, Transfers Treatment Duration: Mar 04, 2022 Frequency: 6 times per week Estimated Hrs Per Day: .25 hour per day Patient and/or Family Agrees t: Yes Safety Risks/Education Patient Education: Gait Training Teaching Recipient: Patient Teaching Methods: Demonstration, Discussion Response to Teaching: Reinforcement Needed Time/GCodes Time In: 840 Time Out: 900 Total Billed Treatment Time: 20 Total Billed Treatment Visit, EVM TOCCI,WICHO PT Jan 07, 2022 09:52
[2022-01-07 11:15] VITALS: BP 161/82
[2022-01-07] MEDS ORDERED: MULT-1136 PO (12:43)
[2022-01-07] MEDS ORDERED: AMLO10TA4 PO ×2 (12:43→15:09)
[2022-01-07] MEDS ORDERED: ATOR10TA PO (12:43)
[2022-01-07] MEDS ORDERED: ASPI-808 PO (15:11)
[2022-01-07 15:51] VITALS: BP 171/70
[2022-01-07 19:30] VITALS: BP 139/65
[2022-01-07 23:28] VITALS: BP 136/73
[2022-01-08] MEDS: PIPERACILLIN SODIUM/TAZOBACTAM 4.5 GM in NS (IVPB) 100 ML IV SCH ×3 (01:12→17:19)
[2022-01-08] MEDS: morphine INJ 4 MG/ML 1 ML (VIAL/SYRINGE) IV PRN ×3 (01:12→18:45)
[2022-01-08 03:38] VITALS: BP 145/74
[2022-01-08 05:47] LABS: BASOPHILS % (AUTO) 0 % (0-10); EOSINOPHILS # (AUTO) 0.2 10^3/uL (0.0-0.3); EOSINOPHILS % (AUTO) 3 % (0-10); HEMATOCRIT 42 % (40-54); HEMOGLOBIN 13.5 g/dL (13.3-17.7); LYMPHOCYTES # (AUTO) 1.2 10^3/uL (1.0-4.0); LYMPHOCYTES % (AUTO) 19 % (12-44); MEAN CORPUSCULAR HEMOGLOBIN 32 pg (25-34); MEAN CORPUSCULAR HGB CONC 32 g/dL (32-36); MEAN CORPUSCULAR VOLUME 99 fL (80-99); MEAN PLATELET VOLUME 11.7 fL (9.0-12.2); MONOCYTES # (AUTO) 0.7 10^3/uL (0.0-1.0); MONOCYTES % (AUTO) 10 % (0-12); NEUTROPHILS # (AUTO) 4.4 10^3/uL (1.8-7.8); NEUTROPHILS % (AUTO) 67 % (42-75); PLATELET COUNT 149 10^3/uL (130-400); WHITE BLOOD COUNT 6.5 10^3/uL (4.3-11.0)
[2022-01-08 06:01] LABS: ALBUMIN 3.4 GM/DL (3.2-4.5); POTASSIUM 3.2 MMOL/L (3.6-5.0)
[2022-01-08 06:03] LABS: CALCIUM 8.6 MG/DL (8.5-10.1)
[2022-01-08 06:04] LABS: TOTAL PROTEIN 6.2 GM/DL (6.4-8.2)
[2022-01-08 06:06] LABS: BILIRUBIN,TOTAL 1.6 MG/DL (0.1-1.0)
[2022-01-08 06:07] LABS: CREATININE SERUM 0.85 MG/DL (0.60-1.30)
--- NOTE | 2022-01-08 07:29 | Progress Note - Hospitalist ---
Subjective HPI/CC On Admission Date Seen by Provider: Jan 08, 2022 Time Seen by Provider: 12:00 Chief complaint: Small bowel obstruction History of present illness: This is an 86-year-old white male who has a past medical history of hypertension and pacemaker and a previous bowel obstruction who presented to the ER with abdominal pain. Bowel obstruction was diagnosed and NG tube was placed and Dr. Gold was consulted. Patient is currently doing well with decreased abdominal pain. He did well with therapy. Conservative management will continue. Subjective/Events-last exam Patient doing well Daughter who is a nurse is at the bedside today Patient doing better Passing gas NG tube is still in place IV fluids continue Replace potassium Review of Systems General: Fatigue Gastrointestinal: Abdominal Pain Objective Exam Vital Signs Vital Signs Date Time Temp Pulse Resp B/P (MAP) Pulse Ox O2 Delivery O2 Flow Rate FiO2 01/08/22 15:33 36.8 65 22 136/92 (107) 96 Room Air 01/08/22 08:00 0.00 Capillary Refill : Less Than 3 Seconds General Appearance: No Apparent Distress, WD/WN, Chronically ill Respiratory: Lungs Clear, Normal Breath Sounds Cardiovascular: Regular Rate, Rhythm Gastrointestinal: Abnormal Bowel Sounds, Tenderness Neurologic/Psychiatric: Alert, Oriented x3 Results/Procedures Lab Laboratory Tests 01/08/22 05:12 Patient resulted labs reviewed. Assessment/Plan Assessment and Plan Assess & Plan/Chief Complaint Assessment: Small bowel obstruction NG tube in place Hypertension Hyperlipidemia Pacemaker Plan: Supportive care NG tube Dr. Gold appreciated 01/08/2022: Supportive care NG tube Dr. Gold appreciated Ambulate Diagnosis/Problems Diagnosis/Problems (1) SBO (small bowel obstruction) Status: Acute BUCKFEDERICO WHITAKERChelsie RODRIGUEZ Jan 08, 2022 07:29
[2022-01-08 08:15] VITALS: BP 130/73
[2022-01-08] MEDS: NS IV 1000 ML 1,000 ML IV SCH ×2 (08:31→20:57)
--- NOTE | 2022-01-08 10:01 | Progress Note - Surgery ---
KELSEA COHEN 01/08/22 1001: Subjective Date Seen by a Provider: Jan 08, 2022 Time Seen by a Provider: 09:40 Subjective/Events-last exam Pt reports feeling better today. He has had no bowel movement, but is still passing gas. His pain is 3/10 in the lower quadrants. The pt's NG tube drainage is a supervisor pipeline yellow brown than yesterday (400mL so far today). Pt ambulated with physical therapy yesterday. Has not eaten or drank apart from ice chips. He denies CP, SOB, N/V, and fever at this time. Confirms he has an umbilical hernia, believes they operated on it when he had his first blockage surgery in the seventies. Review of Systems General: No Chills; Fatigue HEENT: No Head Aches, No Visual Changes Pulmonary: No Dyspnea, No Cough Cardiovascular: No: Chest Pain, Palpitations Gastrointestinal: Abdominal Pain; No: Nausea, Vomiting Genitourinary: No Dysuria; Frequency Musculoskeletal: neck pain (chronic arthritis), back pain (chronic arthritis) Neurological: No: Weakness, Change in speech Focused Exam Respiratory: Lungs Clear, Normal Breath Sounds, No Accessory Muscle Use Cardiovascular: Regular Rate, Rhythm, No Murmur, Normal Peripheral Pulses Peripheral Pulses: 2+ Radial Pulses (R), 2+ Radial Pulses (L) Skin: normal color, warm/dry Objective Exam Vital Signs Date Time Temp Pulse Resp B/P (MAP) Pulse Ox O2 Delivery O2 Flow Rate FiO2 01/08/22 08:15 37.0 60 20 130/73 (92) 96 Room Air 01/08/22 08:00 96 Room Air 0.00 01/08/22 07:00 Room Air 0.00 01/08/22 03:38 36.7 66 18 145/74 (97) 96 Room Air 01/07/22 23:28 36.9 65 16 136/73 (94) 94 Room Air 01/07/22 20:16 Room Air 01/07/22 19:30 37.0 84 18 139/65 (89) 97 Room Air 01/07/22 15:51 37.4 73 20 171/70 (103) 95 Room Air 01/07/22 11:15 36.7 63 20 161/82 (108) 92 Room Air I & O 01/08/22 07:00 Intake Total 3340 ml Output Total 550 ml Balance 2790 ml Capillary Refill : General Appearance: No Apparent Distress, Chronically ill, Thin Neck: Normal Inspection, Supple Respiratory: Lungs Clear, No Accessory Muscle Use, No Respiratory Distress Cardiovascular: Regular Rate, Rhythm, No Murmur, Normal Peripheral Pulses Peripheral Pulses: 2+ Radial Pulses (R), 2+ Radial Pulses (L) Gastrointestinal: soft, no organomegaly, tenderness (epigastric and lower quadrants (left especially)), hernia (umbilical) Extremity: Normal Inspection, No Pedal Edema Neurologic/Psychiatric: Alert, Oriented x3, Normal Mood/Affect Skin: Normal Color, Warm/Dry Results Lab Laboratory Tests 01/08/22 05:12: White Blood Count 6.5, Red Blood Count 4.24L, Hemoglobin 13.5, Hematocrit 42, Mean Corpuscular Volume 99, Mean Corpuscular Hemoglobin 32, Mean Corpuscular Hemoglobin Concent 32, Red Cell Distribution Width 13.9, Platelet Count 149, Mean Platelet Volume 11.7, Immature Granulocyte % (Auto) 0, Neutrophils (%) (Auto) 67, Lymphocytes (%) (Auto) 19, Monocytes (%) (Auto) 10, Eosinophils (%) (Auto) 3, Basophils (%) (Auto) 0, Neutrophils # (Auto) 4.4, Lymphocytes # (Auto) 1.2, Monocytes # (Auto) 0.7, Eosinophils # (Auto) 0.2, Basophils # (Auto) 0.0, Immature Granulocyte # (Auto) 0.0, Sodium Level 144, Potassium Level 3.2L, Chloride Level 108H, Carbon Dioxide Level 24, Anion Gap 12, Blood Urea Nitrogen 32H, Creatinine 0.85, Estimat Glomerular Filtration Rate 86, BUN/Creatinine Ratio 38, Glucose Level 77, Calcium Level 8.6, Corrected Calcium 9.1, Total Bilirubin 1.6H, Aspartate Amino Transf (AST/SGOT) 20, Alanine Aminotransferase (ALT/SGPT) 19, Alkaline Phosphatase 53, Total Protein 6.2L, Albumin 3.4 Assessment/Plan Assessment/Plan Assessment/Plan Abdominal Pain- possible small bowel obstruction vs ileus due to enteritis N/V HTN NG tube 400mL drainage yellow-brown fluid this a.m., continue LIWS CxR- Mild L basilar atelectasis Abd/pelvic CT- distal esophagus to jejunum was dilated with fluid; partial obstruction at jejunoileal jxn NPO (ice chips) IV fluids Continue Piper/Tazo Ondansetron as needed Pain management Monitor labs and vitals Ambulate with PT Conservative surgical management at this time May need small bowel follow through if no improvement DAVE GOLD DO 01/08/22 1421: Subjective Time Seen by a Provider: 13:12 Subjective/Events-last exam Pt seen and examined, states he had moderate pain last night and his abdomen is not better than it was yesterday. In fact, he may have slightly more pain today. He denies N/V, but does think his belly may be a little more distended today. Review of Systems General: Fatigue Pulmonary: No Dyspnea, No Cough Cardiovascular: No: Chest Pain, Palpitations Gastrointestinal: Abdominal Pain; No: Nausea, Vomiting Genitourinary: No Dysuria; Frequency Objective Exam General Appearance: No Apparent Distress, Chronically ill, Thin HEENT: PERRL/EOMI, Other (NGT in place, ?maroonish/brown fluid) Respiratory: Lungs Clear, Normal Breath Sounds, No Accessory Muscle Use, No Respiratory Distress Cardiovascular: Regular Rate, Rhythm, No Murmur Gastrointestinal: soft, no organomegaly, tenderness (epigastric and lower quadrants (left especially)), hernia (umbilical) Assessment/Plan Assessment/Plan Assessment/Plan Abdominal Pain- possible small bowel obstruction vs ileus due to enteritis N/V HTN NG tube 400mL drainage yellow-brown fluid this a.m., now looks more maroon/brown in canister, but tube doesn't look bad. Continue LIWS CxR- Mild L basilar atelectasis - use IS Abd/pelvic CT- distal esophagus to jejunum was dilated with fluid; partial obstruction at jejunoileal jxn NPO (ice chips), IV fluids, Continue Piper/Tazo, Ondansetron as needed, Pain management, Monitor labs and vitals Ambulate with PT and continue conservative surgical management at this time Will order small bowel follow through for am. Supervisory-Addendum Brief Verification & Attestation Participated in pt care: history, MDM, physical Personally performed: exam, history, MDM, supervision of care Care discussed with: Medical Student Procedures: n/a Verification and Attestation of Medical Student E/M Service A medical student performed and documented this service. I then reviewed and verified all information documented by the medical student and made modifications to such information, when appropriate. I personally performed a physical exam, medical decision making and then discussed any differences between the notes and made revisions as necessary to create one note. Dave Gold , 01/08/22 , 14:20 KELSEA COHEN Jan 08, 2022 10:01 DAVE GOLD DO Jan 08, 2022 14:21
[2022-01-08 12:15] VITALS: BP 130/72
[2022-01-08] MEDS ORDERED: MAGNESIUM 1 GM/100 ML IVPB 100 ML IV ONE (12:15)
[2022-01-08] MEDS: POTASSIUM CL 10MEQ/50ML IVPB 50 ML IV SCH ×3 (14:06→15:46)
[2022-01-08 15:33] VITALS: BP 136/92
[2022-01-08 19:47] VITALS: BP 135/64
[2022-01-08] MEDS: ENOXAPARIN 40 MG/0.4 ML (LOVENOX) SYR SC SCH (20:38)
[2022-01-08 23:46] VITALS: BP_SYST 134; BP_SYST 71; BP_DIAS 64; BP_DIAS 71
[2022-01-09] VITALS (7 sets, daily range): BP systolic 109–171; BP diastolic 63–96
[2022-01-09] MEDS: PIPERACILLIN SODIUM/TAZOBACTAM 4.5 GM in NS (IVPB) 100 ML IV SCH ×3 (01:51→18:05)
[2022-01-09] MEDS: morphine INJ 4 MG/ML 1 ML (VIAL/SYRINGE) IV PRN (04:44)
[2022-01-09 06:03] LABS: BASOPHILS % (AUTO) 0 % (0-10); EOSINOPHILS # (AUTO) 0.2 10^3/uL (0.0-0.3); EOSINOPHILS % (AUTO) 2 % (0-10); HEMATOCRIT 44 % (40-54); HEMOGLOBIN 14.4 g/dL (13.3-17.7); LYMPHOCYTES # (AUTO) 1.4 10^3/uL (1.0-4.0); LYMPHOCYTES % (AUTO) 16 % (12-44); MEAN CORPUSCULAR HEMOGLOBIN 32 pg (25-34); MEAN CORPUSCULAR HGB CONC 32 g/dL (32-36); MEAN CORPUSCULAR VOLUME 98 fL (80-99); MEAN PLATELET VOLUME 11.5 fL (9.0-12.2); MONOCYTES # (AUTO) 0.7 10^3/uL (0.0-1.0); MONOCYTES % (AUTO) 8 % (0-12); NEUTROPHILS # (AUTO) 6.5 10^3/uL (1.8-7.8); NEUTROPHILS % (AUTO) 73 % (42-75); PLATELET COUNT 162 10^3/uL (130-400); WHITE BLOOD COUNT 8.8 10^3/uL (4.3-11.0)
--- NOTE | 2022-01-09 06:07 | Progress Note - Surgery ---
KELSEA CHOEN 01/09/22 0607: Subjective Date Seen by a Provider: Jan 09, 2022 Time Seen by a Provider: 05:50 Subjective/Events-last exam Pt reports lower abdominal pain overnight that increased to 8/10. He was given morphine. Currently the pain is 5/10. The patient has not had a bowel movement, but is still passing gas. His NG tube drained 1200mL yesterday and 100mL this morning. Currently the drainage is dark brown and chunky. He has not had any ice after midnight and is NPO. Urine output was low yesterday (225mL total), but he has already had 600mL this morning. Pt denies CP, SOB, palpitations, and fever at this time. Review of Systems General: No Chills; Fatigue HEENT: No Head Aches, No Visual Changes Pulmonary: No Dyspnea, No Cough Cardiovascular: No: Chest Pain, Palpitations Gastrointestinal: Abdominal Pain; No: Nausea, Vomiting Genitourinary: No Dysuria, No Frequency Musculoskeletal: neck pain (arthritic); No: leg pain Neurological: No: Weakness, Change in speech Focused Exam Respiratory: Lungs Clear, Normal Breath Sounds, No Respiratory Distress Cardiovascular: Regular Rate, Rhythm, No Murmur Peripheral Pulses: 2+ Radial Pulses (R), 2+ Radial Pulses (L) Skin: normal color, warm/dry Objective Exam Vital Signs Date Time Temp Pulse Resp B/P (MAP) Pulse Ox O2 Delivery O2 Flow Rate FiO2 01/09/22 03:55 36.7 60 18 122/63 (82) 97 Room Air 01/08/22 23:46 36.7 59 20 134/71 (92) 96 Room Air 01/08/22 21:09 Room Air 01/08/22 20:50 Room Air 01/08/22 19:47 37.0 64 22 135/64 (87) 98 Room Air 01/08/22 15:33 36.8 65 22 136/92 (107) 96 Room Air 01/08/22 12:15 37.4 60 20 130/72 (91) 97 Room Air 01/08/22 08:15 37.0 60 20 130/73 (92) 96 Room Air 01/08/22 08:00 96 Room Air 0.00 01/08/22 07:00 Room Air 0.00 I & O 01/09/22 07:00 Intake Total 6440 ml Output Total 1725 ml Balance 4715 ml Capillary Refill : Less Than 3 Seconds General Appearance: No Apparent Distress, WD/WN, Chronically ill HEENT: Other (NGT in place, brown chunky fluid) Respiratory: Lungs Clear, Normal Breath Sounds Cardiovascular: Regular Rate, Rhythm, No Murmur Peripheral Pulses: 2+ Radial Pulses (R), 2+ Radial Pulses (L) Gastrointestinal: soft, no organomegaly, tenderness (epigastric and center of lower quadrants), hernia (umbilical) Extremity: Normal Inspection, No Pedal Edema Neurologic/Psychiatric: Alert, Oriented x3, Normal Mood/Affect Skin: Normal Color, Warm/Dry Results Lab Laboratory Tests 01/09/22 05:50: Assessment/Plan Assessment/Plan Assessment/Plan Abdominal Pain- possible small bowel obstruction vs ileus due to enteritis N/V HTN NG tube 1200mL drainage yesterday; currently dark brown and chunky 100mL CxR- Mild L basilar atelectasis - use IS Abd/pelvic CT- distal esophagus to jejunum was dilated with fluid; partial obstruction at jejunoileal jxn Awaiting small bowel follow through NPO (ice chips after follow through) IV fluids Continue Piper/Tazo Pain management Monitor labs and vitals Ambulate with PT Conservative surgical management at this time DAVE GOLD DO 01/10/22 1156: Subjective Time Seen by a Provider: 14:19 Subjective/Events-last exam Pt seen and examined, he is having BMs and had his SBFT. He wants to eat. Review of Systems General: No Chills; Fatigue Pulmonary: No Dyspnea, No Cough Cardiovascular: No: Chest Pain, Palpitations Gastrointestinal: Abdominal Pain; No: Nausea, Vomiting Objective Exam General Appearance: No Apparent Distress, Chronically ill Respiratory: Lungs Clear, Normal Breath Sounds Cardiovascular: Regular Rate, Rhythm, No Murmur Gastrointestinal: soft, no organomegaly, tenderness (epigastric and center of lower quadrants), hernia (umbilical) Assessment/Plan Assessment/Plan Assessment/Plan Abdominal Pain- improved, SBFT showed contrast in large intestine within 30 minutes and he is having BMs now N/V - resolved HTN Start clear liquied diet, continue IV fluids, increase diet as tolerated, D/C ABX Pain management, Monitor labs and vitals, Ambulate with PT Supervisory-Addendum Brief Verification & Attestation Participated in pt care: history, MDM, physical Personally performed: exam, history, MDM, supervision of care Care discussed with: Medical Student Procedures: n/a Verification and Attestation of Medical Student E/M Service A medical student performed and documented this service. I then reviewed and verified all information documented by the medical student and made modifications to such information, when appropriate. I personally performed a physical exam, medical decision making and then discussed any differences between the notes and made revisions as necessary to create one note. Dave Gold , 01/10/22 , 11:56 KELSEA COHEN Jan 09, 2022 06:07 DAVE GOLD DO Jan 10, 2022 11:56
[2022-01-09 06:09] LABS: ALBUMIN 3.5 GM/DL (3.2-4.5); POTASSIUM 3.3 MMOL/L (3.6-5.0)
[2022-01-09 06:10] LABS: CALCIUM 8.6 MG/DL (8.5-10.1)
[2022-01-09 06:11] LABS: TOTAL PROTEIN 6.3 GM/DL (6.4-8.2)
[2022-01-09 06:13] LABS: BILIRUBIN,TOTAL 1.9 MG/DL (0.1-1.0)
[2022-01-09 06:15] LABS: CREATININE SERUM 0.74 MG/DL (0.60-1.30)
[2022-01-09] MEDS: POTASSIUM CL 10MEQ/50ML IVPB 50 ML IV SCH ×4 (07:02→10:10)
[2022-01-09] MEDS: NS IV 1000 ML 1,000 ML IV SCH ×3 (07:02→18:12)
[2022-01-09] MEDS ORDERED: DIATRIZOATE MEGLUM/SODIUM 37% 120 ML (GASTROGRAFIN) NG ONE (08:45)
--- NOTE | 2022-01-09 10:03 | Physical Therapy Daily Note ---
PT Daily Note-Current Subjective Patient is very agreeable to participate with PT. Mental Status Patient Orientation: Normal For Age Attachments: NG Tube, IV Transfers SCALE: Activities may be completed with or without assistive devices. 9-Woefhlqrqd-vnivlhk completes the activity by him/herself with no assistance from a helper. 5-Set-up or Clean-up Assistance-helper sets up or cleans up; patient completes activity. [place] assists only prior to or following the activity. 4-Supervision or Touching Assistance-helper provides verbal cues and/or touching/steadying and/or contact guard assistance as patient completes activity. Assistance may be provided throughout the activity or intermittently. 3-Partial/Moderate Assistance-helper does LESS THAN HALF the effort. [place] lifts, holds or supports trunk or limbs, but provides less than half the effort. 2-Substantial/Maximal Assistance-helper does MORE THAN HALF the effort. [place] lifts or holds trunk or limbs and provides more than half the effort. 4-Aiajonerb-nxsnjm does ALL the effort. Patient does none of the effort to complete the activity. Or, the assistance of 2 or more helpers is required for the patient to complete the activity. If activity was not attempted, code reason: 7-Patient Refused. 9-Not Applicable-not attempted and the patient did not perform the activity before the current illness, exacerbation or injury. 10-Not Attempted due to Environmental Limitations-(lack of equipment, weather restraints, etc.). 88-Not Attempted due to Medical Conditions or Safety Concerns. Lying to Sitting/Side of Bed(Q: 6 Sit to Stand (QC): 6 Chair/Fpw-nj-Yqvqp Xfer(QC): 6 Gait Training Does the Patient Walk?: Yes Distance: 500' Walk 10 feet (QC): 4 Walk 50 ft with 2 Turns(QC): 4 Walk 150 ft (QC): 4 Gait Assistive Device: FWW PT assist for IV pole only. Safe and functional gait sequence Assessment Patient is currently at OF with all gross motor skills and ambulated 500' without difficulty. Nursing staff instructed to encourage patient to ambulate PRN in hallway. PT to dismiss patient from services at this time. PT Alf Goals [employer] Equipment Mechanic Goals PT Alf Goals Time Frame: Jan 21, 2022 Roll Left & Right (QC): 6 Sit to Lying (QC): 6 Lying-Sitting on Side/Bed(QC): 6 Sit to Stand (QC): 6 Chair/Ori-cl-Lddck Xfer(QC): 6 Toilet Transfer (QC): 5 Does the Patient Walk: Yes Walk 10 feet (QC): 5 Walk 50ft with 2 Turns (QC): 5 Walk 150 ft (QC): 5 PT Plan Treatment/Plan Treatment Plan: Discontinue PT Treatment Plan: Bed Mobility, Education, Functional Activity Ericka, Functional Strength, Gait, Safety, Therapeutic Exercise, Transfers Treatment Duration: Mar 04, 2022 Frequency: 6 times per week Estimated Hrs Per Day: .25 hour per day Patient and/or Family Agrees t: Yes Time/GCodes Time In: 917 Time Out: 927 Total Billed Treatment Time: 10 Total Billed Treatment 1 visit FA 10 min RAY MATHEW PT Jan 09, 2022 10:03
--- NOTE | 2022-01-09 10:03 | Diagnostic Imaging Report ---
INDICATION: Nausea and abdominal pain. Correlation is made with the recent CT study performed on 01/06/2022. Preliminary radiograph of the abdomen shows an NG tube passing below the diaphragm. Bowel gas pattern appears normal. Small and large bowel loops are nondilated. No definite free air is detected. 120 mL of gastrografin and contrast mixed with 120 mL of water was injected through the patient's indwelling nasogastric tube and serial radiographs of the abdomen were obtained. There is contrast within the stomach. There appears to be some reflux of contrast into the distal esophagus. Prompt emptying into the small bowel loops is noted. There is normal progression of contrast throughout the small bowel to the right colon. Contrast is visualized in the right colon at 30 minutes. Therefore no complete obstruction is seen. Mucosal fold pattern is unremarkable. No intrinsic or extrinsic mass is identified. IMPRESSION: Unremarkable small bowel study apart from mild gastroesophageal reflux. No small bowel obstruction is identified. Dictated by: Dictated on workstation # [id number]
--- NOTE | 2022-01-09 10:15 | Progress Note - Hospitalist ---
Subjective HPI/CC On Admission Date Seen by Provider: Jan 09, 2022 Time Seen by Provider: 10:00 Chief complaint: Small bowel obstruction History of present illness: This is an 86-year-old white male who has a past medical history of hypertension and pacemaker and a previous bowel obstruction who presented to the ER with abdominal pain. Bowel obstruction was diagnosed and NG tube was placed and Dr. Gold was consulted. Patient is currently doing well with decreased abdominal pain. He did well with therapy. Conservative management will continue. Subjective/Events-last exam Pt doing a lot better now Small bowel follow-through prompted a large solid bowel movement Pt feels much better right now NG tube is still in place IV fluids maintained Review of Systems General: Fatigue, Malaise Objective Exam Vital Signs Vital Signs Date Time Temp Pulse Resp B/P (MAP) Pulse Ox O2 Delivery O2 Flow Rate FiO2 01/09/22 23:08 37.2 60 20 153/72 (99) 95 Room Air 01/08/22 08:00 0.00 Capillary Refill : Less Than 3 Seconds General Appearance: No Apparent Distress, WD/WN, Chronically ill Respiratory: Lungs Clear, Normal Breath Sounds Cardiovascular: Regular Rate, Rhythm Gastrointestinal: Normal Bowel Sounds Neurologic/Psychiatric: Alert, Oriented x3, No Motor/Sensory Deficits, Normal M ood/Affect Results/Procedures Lab Laboratory Tests 01/09/22 05:50 Patient resulted labs reviewed. Assessment/Plan Assessment and Plan Assess & Plan/Chief Complaint Assessment: Small bowel obstruction status post large bowel movement after small bowel follow-through process NG tube in place Hypertension Hyperlipidemia Pacemaker Plan: Supportive care NG tube Dr. Gold appreciated 01/08/2022: Supportive care NG tube Dr. Gold appreciated Ambulate 01/09/2022: Good results of bowel movement Diagnosis/Problems Diagnosis/Problems (1) SBO (small bowel obstruction) Status: Acute FRANCISCO BUCK DO Jan 09, 2022 10:15
--- NOTE | 2022-01-09 10:25 | Occupational Therapy Eval ---
OT Evaluation-General/PLF Medical Diagnosis Admission Date Jan 06, 2022 at 21:54 Medical Diagnosis: Nausea, vomiting, abdominal pain Onset Date: Jan 07, 2022 Therapy Diagnosis Therapy Diagnosis: reduced endurance Precautions Precautions/Isolations: Fall Prevention, Standard Precautions Referral Physician: Dr. Chavez Referral Reason: Evaluation/Treatment Medical History Pertinent Medical History: HTN Additional Medical History pacemaker Current History Pt presents to ER with n/v, and abdominal pain. found to have SBO. NG tube placed, currently NPO. Pt reports living alone in a ground level apartment. His apartment does not have any water so he goes ~60-70 feet to a "bathhouse" located outside his apartment. Laundry is also located there. Pt states that he has not had water in his apartment for the past 6 years. He verbalizes that he was indep with all adls and iadls prior to admission but does have supportive friends that can assist if needed post d/c. He still drives and was not using any AD for mobility at baseline. Social History Home: Apartment Current Living Status: Alone Entry Into Home: Level Entry Steps Into Home: 0 ADL-Prior Level of Function SCALE: Activities may be completed with or without assistive devices. 8-Vgswohcbxs-epwuvov completes the activity by him/herself with no assistance from a helper. 5-Set-up or Clean-up Assistance-helper sets up or cleans up; patient completes activity. [place] assists only prior to or following the activity. 4-Supervision or Touching Assistance-helper provides verbal cues and/or touching/steadying and/or contact guard assistance as patient completes activity. Assistance may be provided throughout the activity or intermittently. 3-Partial/Moderate Assistance-helper does LESS THAN HALF the effort. [place] lifts, holds or supports trunk or limbs, but provides less than half the effort. 2-Substantial/Maximal Assistance-helper does MORE THAN HALF the effort. [place] lifts or holds trunk or limbs and provides more than half the effort. 3-Mkwcegfvh-monnwg does ALL the effort. Patient does none of the effort to complete the activity. Or, the assistance of 2 or more helpers is required for the patient to complete the activity. If activity was not attempted, code reason: 7-Patient Refused. 9-Not Applicable-not attempted and the patient did not perform the activity before the current illness, exacerbation or injury. 10-Not Attempted due to Environmental Limitations-(lack of equipment, weather restraints, etc.). 88-Not Attempted due to Medical Conditions or Safety Concerns. Self Care: Independent Functional Cognition: Independent Drive Self: Yes OT Current Status Subjective Pt reports feeling much better after have a large BM. Appearance Pt left sitting on toilet at OT departure. RN notified. Mental Status/Objective Patient Orientation: Person, Place, Situation Attachments: IV, NG Tube Current Hand Dominance: Right Upper Extremity ROM WNL Upper Extremity Strength 4/5 grossly ADL-Treatment Lower Body Dressing (QC): 6 Toileting Hygiene (QC): 6 Pt sitting on toilet at OT arrival. He had just finished having a large BM and was able to perform uriel care and clothing management without assist. He ambulated back to bed, supervision for safety only for IV pole. No unsteadiness or safety concerns observed. Once returning to bed, pt participated in interview and then reported need to have another BM. He performed all bed mobility indep and ambulated back to toilet without assist. Pt left sitting on toilet, RN notified. Education OT Patient Education: Modified ADL techniques, Progress toward Goal/Update tx plan, Purpose of tx/functional activities Teaching Recipient: Patient Teaching Methods: Discussion Response to Teaching: Verbalize Understanding OT Senior Site Manager Goals Senior Site Manager Goals 1=Demonstrate adherence to instructed precautions during ADL tasks. 2=Patient will verbalize/demonstrate understanding of assistive devices/modifications for ADL. 3=Patient will improve strength/tolerance for activity to enable patient to perform ADL's. OT Education/Plan Problem List/Assessment Assessment: No Skilled OT Needs ID'd Discharge Recommendations Plan/Recommendations: Discontinue OT Treatment Plan/Plan of Care Treatment,Training & Education: Yes Patient would benefit from OT for education, treatment and training to promote independence in ADL's, mobility, safety and/or upper extremity function for ADL's. Plan of Care: ADL Retraining Treatment Duration: Jan 09, 2022 Frequency: 1 time per week Estimated Hrs Per Day: .25 hour per day Agreement: Yes Rehab Potential: Good Time/GCodes Start Time: 09:51 Stop Time: 10:01 Total Time Billed (hr/min): 10 Billed Treatment Time 1 visit Radha Osuna OT Jan 09, 2022 10:25
[2022-01-09] MEDS ORDERED: ATOR10TA66 PO (10:56)
[2022-01-09] MEDS ORDERED: AMLO-250 PO (10:56)
[2022-01-09] MEDS ORDERED: ASPI-808 PO (10:56)
[2022-01-09] MEDS ORDERED: MULT-974 PO (10:57)
[2022-01-09] MEDS ORDERED: FAMOTIDINE 20 MG (PEPCID) TABLET PO ONE (18:30)
[2022-01-09] MEDS ORDERED: FAMOTIDINE 20 MG (PEPCID) TABLET ONE (18:38)
[2022-01-09] MEDS: ENOXAPARIN 40 MG/0.4 ML (LOVENOX) SYR SC SCH (19:42)
[2022-01-10] MEDS: NS IV 1000 ML 1,000 ML IV SCH ×2 (00:06→09:48)
[2022-01-10] MEDS: PIPERACILLIN SODIUM/TAZOBACTAM 4.5 GM in NS (IVPB) 100 ML IV SCH ×2 (01:43→09:47)
[2022-01-10 05:45] LABS: BASOPHILS % (AUTO) 1 % (0-10); EOSINOPHILS # (AUTO) 0.2 10^3/uL (0.0-0.3); EOSINOPHILS % (AUTO) 3 % (0-10); HEMATOCRIT 40 % (40-54); HEMOGLOBIN 13.6 g/dL (13.3-17.7); LYMPHOCYTES # (AUTO) 1.2 10^3/uL (1.0-4.0); LYMPHOCYTES % (AUTO) 19 % (12-44); MEAN CORPUSCULAR HEMOGLOBIN 32 pg (25-34); MEAN CORPUSCULAR HGB CONC 34 g/dL (32-36); MEAN CORPUSCULAR VOLUME 94 fL (80-99); MEAN PLATELET VOLUME 11.6 fL (9.0-12.2); MONOCYTES # (AUTO) 0.6 10^3/uL (0.0-1.0); MONOCYTES % (AUTO) 9 % (0-12); NEUTROPHILS # (AUTO) 4.3 10^3/uL (1.8-7.8); NEUTROPHILS % (AUTO) 69 % (42-75); PLATELET COUNT 163 10^3/uL (130-400); WHITE BLOOD COUNT 6.2 10^3/uL (4.3-11.0)
--- NOTE | 2022-01-10 06:02 | Progress Note - Surgery ---
Subjective Date Seen by a Provider: Jan 10, 2022 Objective Exam Vital Signs Date Time Temp Pulse Resp B/P (MAP) Pulse Ox O2 Delivery O2 Flow Rate FiO2 01/09/22 23:08 37.2 60 20 153/72 (99) 95 Room Air 01/09/22 19:40 Room Air 01/09/22 19:39 37.3 60 22 134/63 (86) 97 Room Air 01/09/22 16:21 36.6 69 20 144/73 (96) 97 Room Air 01/09/22 14:08 37.1 96 01/09/22 11:16 37.0 73 18 171/93 (119) 100 Room Air 01/09/22 08:00 99 Room Air 01/09/22 07:44 36.7 64 18 139/75 (96) 99 Room Air I & O 01/10/22 07:00 Intake Total 2140 ml Output Total 475 ml Balance 1665 ml Capillary Refill : Less Than 3 Seconds General Appearance: No Apparent Distress, WD/WN, Chronically ill HEENT: Other (NGT in place, brown chunky fluid) Respiratory: Lungs Clear, Normal Breath Sounds Cardiovascular: Regular Rate, Rhythm Peripheral Pulses: 2+ Radial Pulses (R), 2+ Radial Pulses (L) Gastrointestinal: soft, no organomegaly, tenderness (epigastric and center of lower quadrants), hernia (umbilical) Extremity: Normal Inspection, No Pedal Edema Neurologic/Psychiatric: Alert, Oriented x3, No Motor/Sensory Deficits, Normal Mood/Affect Skin: Normal Color, Warm/Dry Results Lab Laboratory Tests 01/10/22 05:13: White Blood Count 6.2, Red Blood Count 4.28L, Hemoglobin 13.6, Hematocrit 40, Mean Corpuscular Volume 94, Mean Corpuscular Hemoglobin 32, Mean Corpuscular Hemoglobin Concent 34, Red Cell Distribution Width 13.2, Platelet Count 163, Mean Platelet Volume 11.6, Immature Granulocyte % (Auto) 0, Neutrophils (%) (Auto) 69, Lymphocytes (%) (Auto) 19, Monocytes (%) (Auto) 9, Eosinophils (%) (Auto) 3, Basophils (%) (Auto) 1, Neutrophils # (Auto) 4.3, Lymphocytes # (Auto) 1.2, Monocytes # (Auto) 0.6, Eosinophils # (Auto) 0.2, Basophils # (Auto) 0.0, Immature Granulocyte # (Auto) 0.0 Assessment/Plan Assessment/Plan Assessment/Plan Abdominal Pain- possible small bowel obstruction vs ileus due to enteritis N/V HTN NG tube 1200mL drainage yesterday; currently dark brown and chunky 100mL CxR- Mild L basilar atelectasis - use IS Abd/pelvic CT- distal esophagus to jejunum was dilated with fluid; partial obstruction at jejunoileal jxn Awaiting small bowel follow through NPO (ice chips after follow through) IV fluids Continue Piper/Tazo Pain management Monitor labs and vitals Ambulate with PT Conservative surgical management at this time KELSEA COHEN Jan 10, 2022 06:02
[2022-01-10 06:03] LABS: ALBUMIN 3.2 GM/DL (3.2-4.5)
[2022-01-10 06:04] LABS: CALCIUM 8.1 MG/DL (8.5-10.1)
[2022-01-10 06:05] LABS: TOTAL PROTEIN 5.6 GM/DL (6.4-8.2)
[2022-01-10 06:07] LABS: BILIRUBIN,TOTAL 1.7 MG/DL (0.1-1.0)
[2022-01-10 06:09] LABS: CREATININE SERUM 0.72 MG/DL (0.60-1.30)
[2022-01-10] MEDS ORDERED: KCL 20 MEQ TAB (K-DUR) PO ONE (06:30)
--- NOTE | 2022-01-10 06:48 | Progress Note - Surgery ---
KELSEA COHEN 01/10/22 0648: Subjective Date Seen by a Provider: Jan 10, 2022 Time Seen by a Provider: 06:20 Subjective/Events-last exam Pt reports trouble with heartburn pain overnight. He was given a one time dose of Pepcid, which he said did not help much. He said it was a burning pain and pointed towards the bottom of his sternum. His NG tube was removed and he started on CLD. He had broth, slushie, jello, juice, and coffee last night for dinner. No N/V. He had four bowel movements overnight that were brown liquid, with no visible blood. Yesterday's three bowel movements were more solid. His abdominal pain is 3/10 in the lower quadrants. His bp has been elevated overnight. Pt deneis CP, SOB, palpitations, and fever currently. Review of Systems General: No Chills; Appetite (improved) HEENT: No Head Aches, No Visual Changes Pulmonary: No Dyspnea, No Cough Cardiovascular: No: Chest Pain, Palpitations Gastrointestinal: Abdominal Pain (3/10 lower quadrants), Other (reflux); No: Nausea, Vomiting Genitourinary: No Dysuria, No Hematuria Musculoskeletal: No: neck pain, back pain Neurological: No: Weakness, Change in speech Focused Exam Respiratory: Lungs Clear, Normal Breath Sounds, No Respiratory Distress Cardiovascular: Regular Rate, Rhythm, Systolic Murmur Peripheral Pulses: 2+ Radial Pulses (R), 2+ Radial Pulses (L) Skin: normal color, warm/dry Objective Exam Vital Signs Date Time Temp Pulse Resp B/P (MAP) Pulse Ox O2 Delivery O2 Flow Rate FiO2 01/09/22 23:08 37.2 60 20 153/72 (99) 95 Room Air 01/09/22 19:40 Room Air 01/09/22 19:39 37.3 60 22 134/63 (86) 97 Room Air 01/09/22 16:21 36.6 69 20 144/73 (96) 97 Room Air 01/09/22 14:08 37.1 96 01/09/22 11:16 37.0 73 18 171/93 (119) 100 Room Air 01/09/22 08:00 99 Room Air 01/09/22 07:44 36.7 64 18 139/75 (96) 99 Room Air I & O 01/10/22 06:59 Intake Total 2140 ml Output Total 475 ml Balance 1665 ml Capillary Refill : Less Than 3 Seconds General Appearance: No Apparent Distress, WD/WN Respiratory: Lungs Clear, Normal Breath Sounds, No Respiratory Distress Cardiovascular: Regular Rate, Rhythm, Systolic Murmur Peripheral Pulses: 2+ Radial Pulses (R), 2+ Radial Pulses (L) Gastrointestinal: soft, no organomegaly, tenderness (epigastric and center of lower quadrants), hernia (umbilical) Extremity: Normal Inspection, No Pedal Edema Neurologic/Psychiatric: Alert, Oriented x3, Normal Mood/Affect Skin: Normal Color, Warm/Dry Results Lab Laboratory Tests 01/10/22 05:13: White Blood Count 6.2, Red Blood Count 4.28L, Hemoglobin 13.6, Hematocrit 40, Mean Corpuscular Volume 94, Mean Corpuscular Hemoglobin 32, Mean Corpuscular Hemoglobin Concent 34, Red Cell Distribution Width 13.2, Platelet Count 163, Mean Platelet Volume 11.6, Immature Granulocyte % (Auto) 0, Neutrophils (%) (Auto) 69, Lymphocytes (%) (Auto) 19, Monocytes (%) (Auto) 9, Eosinophils (%) (Auto) 3, Basophils (%) (Auto) 1, Neutrophils # (Auto) 4.3, Lymphocytes # (Auto) 1.2, Monocytes # (Auto) 0.6, Eosinophils # (Auto) 0.2, Basophils # (Auto) 0.0, Immature Granulocyte # (Auto) 0.0, Sodium Level 135, Potassium Level 3.0L, Chloride Level 105, Carbon Dioxide Level 20L, Anion Gap 10, Blood Urea Nitrogen 13, Creatinine 0.72, Estimat Glomerular Filtration Rate 90, BUN/Creatinine Ratio 18, Glucose Level 82, Calcium Level 8.1L, Corrected Calcium 8.7, Total Bilirubin 1.7H, Aspartate Amino Transf (AST/SGOT) 23, Alanine Aminotransferase (ALT/SGPT) 23, Alkaline Phosphatase 50, Total Protein 5.6L, Albumin 3.2 Assessment/Plan Assessment/Plan Assessment/Plan Abdominal Pain- possible small bowel obstruction vs ileus due to enteritis N/V HTN- 171/93 highest; currently 153/72 CxR- Mild L basilar atelectasis - use IS Abd/pelvic CT- distal esophagus to jejunum was dilated with fluid; partial obstruction at jejunoileal jxn Small bowel study 01/09- small and large bowel nondilated, no free air. Distal eso phageal reflux. Normal contrast progression through small bowel to R colon (30 min). No small bowel obstruction. NG tube removed Raise head of bed, pepcid as needed CLD IV fluids Continue Piper/Tazo Pain management Monitor labs and vitals Ambulate with PT Conservative surgical management at this time Consider outpatient EGD for reflux DAVE GOLD DO 01/10/22 1201: Subjective Time Seen by a Provider: 11:35 Subjective/Events-last exam Pt seen and examined, complains of some heartburn. Tolerating diet and wants regular food. Review of Systems General: No Chills Pulmonary: No Dyspnea, No Cough Cardiovascular: No: Chest Pain, Palpitations Gastrointestinal: Abdominal Pain (3/10 lower quadrants), Other (reflux); No: Nausea, Vomiting Objective Exam General Appearance: No Apparent Distress Respiratory: Lungs Clear, Normal Breath Sounds, No Respiratory Distress Cardiovascular: Regular Rate, Rhythm, Systolic Murmur Gastrointestinal: soft, no organomegaly, tenderness (epigastric and center of lower quadrants), hernia (umbilical) Assessment/Plan Assessment/Plan Assessment/Plan Abdominal Pain- resolved GERD - will Rx med for home N/V HTN- 171/93 highest; currently 153/72 Raise head of bed, pepcid as needed, increase diet Ok to d/c home and consider outpatient EGD for reflux Supervisory-Addendum Brief Verification & Attestation Participated in pt care: history, MDM, physical Personally performed: exam, history, MDM, supervision of care Care discussed with: Medical Student Procedures: n/a Verification and Attestation of Medical Student E/M Service A medical student performed and documented this service. I then reviewed and verified all information documented by the medical student and made modifications to such information, when appropriate. I personally performed a physical exam, medical decision making and then discussed any differences between the notes and made revisions as necessary to create one note. Dave Gold , 01/10/22 , 12:00 KELSEA COHEN Jan 10, 2022 06:48 DAVE GOLD DO Jan 10, 2022 12:01
[2022-01-10 07:40] VITALS: BP 161/77
[2022-01-10] MEDS ORDERED: FAMO-119 PO (10:14)
[2022-01-10] MEDS ORDERED: AMOX1TAB12 PO (10:14)
--- NOTE | 2022-01-10 10:14 | Discharge Summary ---
Discharge Summary Hospital Course Was the Problem List Reviewed?: Yes Problems/Dx: (1) SBO (small bowel obstruction) Status: Acute Hospital Course Date of Admission: Jan 06, 2022 at 21:54 Admission Diagnosis : Family Physician/Provider: Yg Severino MD Date of Discharge: 01/10/22 Discharge Diagnosis: Small bowel obstruction, hypertension Hospital Course: Pt had an uneventful course when he was admitted for Small Bowel Obstruction. NG tube was placed. Overall, he was given IV fluids and supportive care and NPO status. He remained stabilized and a small bowel series and follow-through was ordered which resulted in the resolution of the small bowel obstruction and he was deemed stable for discharge. Labs and Pending Lab Test: Laboratory Tests 01/10/22 05:13: White Blood Count 6.2, Red Blood Count 4.28L, Hemoglobin 13.6, Hematocrit 40, Mean Corpuscular Volume 94, Mean Corpuscular Hemoglobin 32, Mean Corpuscular Hemoglobin Concent 34, Red Cell Distribution Width 13.2, Platelet Count 163, Mean Platelet Volume 11.6, Immature Granulocyte % (Auto) 0, Neutrophils (%) (Auto) 69, Lymphocytes (%) (Auto) 19, Monocytes (%) (Auto) 9, Eosinophils (%) (Auto) 3, Basophils (%) (Auto) 1, Neutrophils # (Auto) 4.3, Lymphocytes # (Auto) 1.2, Monocytes # (Auto) 0.6, Eosinophils # (Auto) 0.2, Basophils # (Auto) 0.0, Immature Granulocyte # (Auto) 0.0, Sodium Level 135, Potassium Level 3.0L, Chloride Level 105, Carbon Dioxide Level 20L, Anion Gap 10, Blood Urea Nitrogen 13, Creatinine 0.72, Estimat Glomerular Filtration Rate 90, BUN/Creatinine Ratio 18, Glucose Level 82, Calcium Level 8.1L, Corrected Calcium 8.7, Total Bilirubin 1.7H, Aspartate Amino Transf (AST/SGOT) 23, Alanine Aminotransferase (ALT/SGPT) 23, Alkaline Phosphatase 50, Total Protein 5.6L, Albumin 3.2 Home Meds Active Pepcid (Famotidine) 20 Mg Tablet 20 Mg PO BID Amox Tr-K Clv 875-125 mg Tab (Amoxicillin/Potassium Clav) 1 Each Tablet 1 Each PO BID Reported Multi-Vitamin Daily (Multivitamin) 1 Each Tablet 1 Each PO DAILY Aspirin 325 Mg Tablet 162.5 Mg PO DAILY TAKES 1/2 OF (325MG) TAB Amlodipine Besylate 5 Mg Tablet 5 Mg PO 2100 Atorvastatin Calcium 10 Mg Tablet 10 Mg PO 2100 Assessment/Pt Instructions PCP in 1 week Discharge Planning: <30 minutes discharge planning Discharge Instructions Discharge Diet: No Restrictions Discharge Physical Examination Vital Signs Vital Signs Date Time Temp Pulse Resp B/P (MAP) Pulse Ox O2 Delivery O2 Flow Rate FiO2 01/10/22 08:00 99 Room Air 01/10/22 07:40 36.8 63 18 161/77 (105) 01/08/22 08:00 0.00 General Appearance: No Apparent Distress, WD/WN, Chronically ill Respiratory: Lungs Clear Cardiovascular: Regular Rate, Rhythm Allergies: Coded Allergies: No Known Drug Allergies (Unverified , 01/06/22) Discharge Summary Date of Admission Jan 06, 2022 at 21:54 Date of Discharge Discharge Date: Jan 10, 2022 Admission Diagnosis Assessment: Small bowel obstruction NG tube in place Hypertension Hyperlipidemia Pacemaker Plan: Supportive care NG tube Dr. Gold appreciated Discharge Diagnosis Assessment: Small bowel obstruction status post large bowel movement after small bowel follow-through process NG tube in place Hypertension Hyperlipidemia Pacemaker Plan: Supportive care NG tube Dr. Gold appreciated 01/08/2022: Supportive care NG tube Dr. Gold appreciated Ambulate 01/09/2022: Good results of bowel movement (1) SBO (small bowel obstruction) Status: Acute FRANCISCO BUCK DO Jan 10, 2022 10:14
[2022-01-10 14:30] VITALS: BP 161/77
[2022-01-10] MEDS ORDERED: amLODIPine 5 MG (NORVASC) TAB PO SCH (21:00)
[2022-01-10] MEDS ORDERED: AtorvaSTATin TABLET 10 MG TABLET PO SCH (21:00)
[2022-01-11] MEDS ORDERED: ASPIRIN 81 MG CHEW (CHILDREN'S ASA) PO SCH (09:00)
[2022-01-11] MEDS ORDERED: MULTIVIT W/MINERALS TAB (THERAGRAN M) PO SCH (09:00)
== END 2022-01-10 14:30 | disposition home or self-care (01) | DRG 390 ==
LOC: EDUNIT# 20:28 → ER 20:31 → 4TH 21:54 → ER 22:51
PROVIDERS: ADMIT Internal Medicine; ATTEND Internal Medicine
PROC: 0D9670Z Drainage of Stomach with Drainage Device, Via Natural or Artificial Opening (ICD-10-PCS; principal; 2022-01-06)
DX: K56.600 Partial intestinal obstruction, unspecified as to cause (principal); I10 Essential (primary) hypertension; J44.9 Chronic obstructive pulmonary disease, unspecified; E78.00 Pure hypercholesterolemia, unspecified; E78.5 Hyperlipidemia, unspecified; N40.0 Benign prostatic hyperplasia without lower urinary tract symptoms; Z95.0 Presence of cardiac pacemaker; K42.9 Umbilical hernia without obstruction or gangrene; H91.90 Unspecified hearing loss, unspecified ear; Z87.891 Personal history of nicotine dependence; Z82.5 Family history of asthma and other chronic lower respiratory diseases
CPT/HCPCS: 36415; 71045; 74176; 74250; 80053; 81000; 83690; 83735; 85007; 85025; 85027